=== PATIENT | male | born 1985 | race Hispanic/Latino ===

== ENCOUNTER 2019-05-28 | Emergency (ER) | payer SELFPAY ==
--- NOTE | 2019-05-28 04:24 | ER ---
Nurse's Notes [facility] Name: Dale Desai Age: 34 yrs Sex: Male : 1985 Arrival Date: 05/28/2019 Time: 04:10 Bed 2 Private MD: Diagnosis: Presentation: 05/27 04:10 Chief complaint: EMS states: "we were called by ALEXANDRO IBRAHIM that had found him in his car. jd3 they called us because he was altered and had an unsteady gait. on the way to the hospital he did admit to drinking a few beers.". Coronavirus screen: The patient has NOT traveled to a country currently being monitored by the CDC within the last 14 days. The patient has NOT had contact with any known and/or suspected case of coronavirus. Proceed with normal triage procedures. Ebola Screen: Patient negative for fever greater than or equal to 101.5 degrees Fahrenheit, and additional compatible Ebola Virus Disease symptoms. Initial Sepsis Screen: Does the patient meet any 2 criteria? No. Patient's initial sepsis screen is negative. Does the patient have a suspected source of infection? No. Patient's initial sepsis screen is negative. Risk Assessment: Do you want to hurt yourself or someone else? Patient reports no desire to harm self or others. 04:10 Method Of Arrival: EMS: [facility] jd3 04:10 Acuity: MARIO 4 jd3 04:15 Note pt is A\\T\\O X 4. pt denies pain. pt reports he just wants to go home see his kids. jd3 pt left before seeing provider. even and steady gait upon leaving ER. no distress noted. even and unlabored respirations. Vital Signs: 04:10 BP 120 / 73; Pulse 77; Resp 16 S; Temp 98.6(O); Pulse Ox 97% on R/A; Weight 84.82 kg jd3 (R); Height 5 ft. 7 in. (170.18 cm) (R); Pain 0/10; 04:10 Body Mass Index 29.29 (84.82 kg, 170.18 cm) jd3 ED Course: 04:10 Patient arrived in ED. jd3 04:20 Triage completed. jd3 Administered Medications: No medications were administered Outcome: 04:21 Patient left the ED. jd3 Signatures: Renny Daniels RN RN jd3 Corrections: (The following items were deleted from the chart) 04:28 04:15 Note pt is A\\T\\O X 4. pt denies pain. pt reports he just wants to go home see his jd3 kids. pt left before seeing provider. even and steady gait upon leaving ER. jd3
== END 2019-05-28 04:21 | disposition left against medical advice (07) ==
DX: Z53.21 Procedure and treatment not carried out due to patient leaving prior to being seen by health care provider (principal)
CPT/HCPCS: 99282